=== PATIENT | male | born 1975 | race African-American/Black ===

== ENCOUNTER 2022-12-30 20:05 | Emergency (ER) | payer SELFPAY ==
[~2022-12-30] VITALS: Ht 182.9 cm; Wt 92.0 kg
[2022-12-30 21:05] VITALS: BP 148/99
[2022-12-30] MEDS ORDERED: OXYM30SP26 BOTHNSTRLS (23:33)
== END 2022-12-30 23:56 | disposition home or self-care (01) ==
LOC: ER 20:05
DX: R04.0 Epistaxis (principal); R05.9 Cough, unspecified; R03.0 Elevated blood-pressure reading, without diagnosis of hypertension
CPT/HCPCS: 99282